=== PATIENT | female | born 1955 | race African-American/Black ===

== ENCOUNTER → 2018-12-07 | Outpatient (CLI) | payer OTHER ==
--- NOTE | 2018-12-08 02:46 | KCIC ---
3 views right knee HISTORY: Pain AP lateral oblique views The visualized osseous structures appear normal. There is a small exostosis arising from the proximal medial tibia. IMPRESSION: No acute findings. Electronically signed by: Bridger Villafana III, MD (12/08/2018 2:43 AM) [facility]
== END | disposition home or self-care (01) ==
LOC: KCIC 09:21
PROVIDERS: ATTEND Family Medicine
DX: M25.861 Other specified joint disorders, right knee (principal)
CPT/HCPCS: 73562

== ENCOUNTER 2018-12-22 22:08 | Emergency (ER) | payer OTHER ==
[~2018-12-22] VITALS: Ht 165.1 cm; Wt 63.5 kg
[2018-12-22 22:15] VITALS: BP 194/93
--- NOTE | 2018-12-22 22:32 | PHYS DOC ---
Adult General Chief Complaint Chief Complaint: Neck Pain HPI HPI Patient is a 63 year old Female who presents with woke up 2 days ago with right neck pain that goes into the right shoulder and is tight. Patient states that when she tries to look from [id number] and [id number] she feels pain and pulling in the muscle in the right neck into the shoulder. Patient states she went to [facility] urgent care today and they gave her Flexeril of which she has not taken. Patient states that she uses a heating pad the muscle loosens up and she is able to turn her head more. Patient states she is not taking any medicine because she went home and took a nap and when she woke up she was afraid that maybe it was something more serious. Patient rates her pain and discomfort a 9 out of 10. Review of Systems Review of Systems Musculoskeletal: Right neck pain and tightness into the shoulder. Denies back pain or joint pain [] All other systems were reviewed and found to be within normal limits, except as documented in this note. Physical Exam Physical Exam Constitutional: Well developed, well nourished, no acute distress, non-toxic appearance. [] HENT: Normocephalic, atraumatic, bilateral external ears normal, oropharynx moist, no oral exudates, nose normal. [] Eyes: PERRLA, EOMI, conjunctiva normal, no discharge. [] Neck: Limited range of motion, Right neck tenderness, supple, no stridor. [] Cardiovascular:Heart rate regular rhythm, no murmur [] Lungs & Thorax: Bilateral breath sounds clear to auscultation [] Skin: Warm, dry, no erythema, no rash. [] Back: No tenderness, no CVA tenderness. [] Extremities: No tenderness, no cyanosis, no clubbing, ROM intact, no edema. [] Neurologic: Alert and oriented X 3, normal motor function, normal sensory function, no focal deficits noted. [] Psychologic: Affect normal, judgement normal, mood normal. [] EKG EKG [] Radiology/Procedures Radiology/Procedures [] Course & Med Decision Making Course & Med Decision Making Tenderness to the right neck down into the right shoulder. Patient range of motion is limited in the neck. Alert and oriented. Speaks in full clear sentences. No deformity or masses felt in the neck. Patient denies chest pain, numbness or tingling, shortness of breath, fever, back pain, visual changes, headache, dizziness, syncope, abdominal pain, nausea, vomiting. No bony spinal tenderness with palpation. PERRLA. Ambulatory with a steady gait. Skin pink warm and dry. Patient can move at the shoulder joints bilaterally with full range of motion. Patient is told to take the Flexeril and use a heating pad and she can also take ibuprofen. Patient states she took Advil and I told her that this was fine. Patient to follow-up with her primary care provider. Dragon Disclaimer Dragon Disclaimer This electronic medical record was generated, in whole or in part, using a voice recognition dictation system. Departure Departure Impression: Primary Impression: Muscle strain Disposition: 01 HOME, SELF-CARE Condition: STABLE Referrals: Bette DAS MD (PCP) Patient Instructions: Torticollis, Acute Additional Instructions: Follow up with primary care provider. Take medications as prescribed. Use Advil and Heating pad. STU SANTANA APRN Dec 22, 2018 22:32
== END 2018-12-22 22:45 | disposition home or self-care (01) ==
LOC: ER 22:08
DX: S16.1XXA Strain of muscle, fascia and tendon at neck level, initial encounter (principal); X50.9XXA Other and unspecified overexertion or strenuous movements or postures, initial encounter; Y93.89 Activity, other specified; Y92.89 Other specified places as the place of occurrence of the external cause; Y99.8 Other external cause status
CPT/HCPCS: 99281

== ENCOUNTER → 2019-12-27 | Outpatient (CLI) | payer OTHER ==
[~2019-12-27] MED LIST: ACET325T9 PO; CRESTOR40 MG PO; HYDR50TA6 PO; METO-239 PO; POTA20TA4 PO
[2019-12-27 09:56] LABS: BASO # 0.1 x10^3/uL (0.0-0.2); BASO % 1 % (0-3); EOS # 0.1 x10^3/uL (0.0-0.7); EOS % 1 % (0-3); HEMATOCRIT 41.3 % (36.0-47.0); HEMOGLOBIN 13.9 g/dL (12.0-15.5); LYMPH # 3.6 x10^3/uL (1.0-4.8); LYMPH % 39 % (24-48); MEAN CORPUSCULAR HEMOGLOBIN 33 pg (25-35); MEAN CORPUSCULAR HGB CONC 34 g/dL (31-37); MEAN CORPUSCULAR VOLUME 97 fL (79-100); MONO # 0.8 x10^3/uL (0.0-1.1); MONO % 8 % (0-9); NEUT # 4.6 x10^3/uL (1.8-7.7); NEUT % 51 % (31-73); PLATELET COUNT 259 x10^3/uL (140-400); RED BLOOD COUNT 4.25 x10^6/uL (3.50-5.40); RED CELL DISTRIBUTION WIDTH 14.1 % (11.5-14.5); WHITE BLOOD COUNT 9.1 x10^3/uL (4.0-11.0)
[2019-12-27 10:01] LABS: PROTHROMBIN TIME PATIENT 14.8 SEC (11.7-14.0)
[2019-12-27 10:23] LABS: ALBUMIN 3.5 g/dL (3.4-5.0); C-REACTIVE PROTEIN 3.6 mg/L (0-3.3); CALCIUM 9.6 mg/dL (8.5-10.1); CREATININE 0.7 mg/dL (0.6-1.0); GFR 101.6
[2019-12-27 10:38] LABS: POTASSIUM 2.6 mmol/L (3.5-5.1)
--- NOTE | 2019-12-27 13:40 | EKG ---
[facility] [address] [place] [address] Test Date: 2019-12-27 Test Time: 13:20:52 Pat Name: COSME THACKER Department: Room: Gender: F Director Independent: : 1955 Requested By: CORY VIERA Order Number: [id number] Reading MD: Gordon Shah MD Measurements Intervals [place] Rate: 92 P: 36 CO: 134 QRS: 13 QRSD: 72 T: 21 QT: 364 QTc: 455 Interpretive Statements SINUS RHYTHM Electronically Signed On 12-28-2019 8:36:05 BODY WELDER by Gordon Shah MD
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
[2019-12-28 01:08] LABS: HEMOGLOBIN A1C 5.5 % (4.8-5.6)
== END ==
LOC: SURGPAT 13:21
PROVIDERS: ATTEND Orthopaedic Surgery
DX: Z01.818 Encounter for other preprocedural examination (principal); M16.11 Unilateral primary osteoarthritis, right hip
CPT/HCPCS: 36415; 71046; 80048; 82040; 82306; 83036; 85025; 85610; 85730; 86140; 87641; 93005

== ENCOUNTER → 2020-01-05 | Outpatient (CLI) | payer MEDICARE, OTHER | LOC: LAB 11:55 | PROVIDERS: ATTEND Orthopaedic Surgery | DX: Z01.812 Encounter for preprocedural laboratory examination (principal); Z20.828 Contact with and (suspected) exposure to other viral communicable diseases | CPT/HCPCS: U0003 ==

== ENCOUNTER → 2020-01-17 | Outpatient (CLI) | payer MEDICARE, OTHER ==
[2020-01-13 08:16] VITALS: BP 100/60
[~2020-01-17] MED LIST changes: +TRAM50TA PO; +WARF4TAB64 PO
--- NOTE | 2020-01-17 15:52 | RAD ---
Examination: Unilateral venous Doppler. Technique: Ultrasound evaluation of the right lower extremity was performed from the groin to the upper calf with pickering scale, spectral and color doppler evaluation. Indication: Leg swelling Comparison: None Findings: There is normal venous flow and compressibility of right common femoral vein, femoral vein, popliteal vein, and visualized proximal calf veins. Evaluation of the calf veins is limited given limited sonographic penetration and swelling. Impression: 1. No evidence for deep vein thrombosis of right lower extremity, although evaluation of the calf veins is limited. 2. Swelling of the right calf. Electronically signed by: Christian Lopez MD (01/17/2020 3:49 PM) [facility]
== END ==
LOC: US 14:58
PROVIDERS: ATTEND Physician Assistant
DX: R22.41 Localized swelling, mass and lump, right lower limb (principal); Z96.641 Presence of right artificial hip joint
CPT/HCPCS: 93971

== ENCOUNTER 2020-09-19 16:20 | Emergency (ER) | payer OTHER, MEDICARE ==
[~2020-09-19] VITALS: Ht 162.6 cm; Wt 77.2 kg
[~2020-09-19 16:20] MED LIST changes: -HYDR50TA6 PO; +HYDR50TA9 PO
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
[2020-09-19] MEDS ORDERED: CONTRAST GIVEN. MC PRN (16:45)
[2020-09-19] MEDS ORDERED: IOHEXOL 300 MG/ML 100ML VIAL. IV ONE (16:45)
[2020-09-19] MEDS ORDERED: MORPHINE SULFATE 2 MG/ML INJ. IVP ONE (16:45)
[2020-09-19 16:56] LABS: BASO % 0 % (0-3); EOS # 0.1 x10^3/uL (0.0-0.7); EOS % 1 % (0-3); HEMATOCRIT 38.9 % (36.0-47.0); HEMOGLOBIN 13.4 g/dL (12.0-15.5); LYMPH # 5.9 x10^3/uL (1.0-4.8); LYMPH % 49 % (24-48); MEAN CORPUSCULAR HEMOGLOBIN 34 pg (25-35); MEAN CORPUSCULAR HGB CONC 34 g/dL (31-37); MEAN CORPUSCULAR VOLUME 99 fL (79-100); MONO # 0.8 x10^3/uL (0.0-1.1); MONO % 7 % (0-9); NEUT # 5.1 x10^3/uL (1.8-7.7); NEUT % 43 % (31-73); PLATELET COUNT 259 x10^3/uL (140-400); RED BLOOD COUNT 3.91 x10^6/uL (3.50-5.40); RED CELL DISTRIBUTION WIDTH 14.5 % (11.5-14.5)
[2020-09-19 17:11] LABS: ALBUMIN 3.6 g/dL (3.4-5.0); ALBUMIN/GLOBULIN RATIO 0.8 (1.0-1.7); CALCIUM 9.2 mg/dL (8.5-10.1); GFR 67.3; TOTAL BILIRUBIN 0.9 mg/dL (0.2-1.0); TOTAL PROTEIN 8.2 g/dL (6.4-8.2)
[2020-09-19 17:20] LABS: POTASSIUM 2.9 mmol/L (3.5-5.1)
[2020-09-19] MEDS ORDERED: IV NORMAL SALINE 1000ML BAG 1,000 ML IV ONE (17:30)
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
[2020-09-19] MEDS ORDERED: POTASSIUM CHLORIDE 20MEQ 100 ML IV ONE (18:00)
[2020-09-19] MEDS ORDERED: POTA-163 PO (18:09)
[2020-09-19] MEDS ORDERED: POTASSIUM CHLORIDE 20 MEQ TABLET.ER. PO ONE (18:15)
--- NOTE | 2020-09-19 18:29 | EKG ---
[facility] [address] [place] [address] Test Date: 2020-09-19 Test Time: 17:49:53 Pat Name: COSME THACKER Department: Room: Gender: F Lithographed Plate Inspector: [id number] : 1955 Requested By: MARIAELENA JOHNSON Order Number: [id number] Reading MD: Measurements Intervals [place] Rate: 111 P: 28 CO: 124 QRS: 3 QRSD: 74 T: 26 QT: 334 QTc: 458 Interpretive Statements SINUS TACHYCARDIA INCOMPLETE RIGHT BUNDLE BRANCH BLOCK OTHERWISE NORMAL ECG RI6.02 No previous ECG available for comparison
[2020-09-19 18:47] VITALS: BP 141/67
== END 2020-09-19 18:47 | disposition home or self-care (01) ==
LOC: ER 16:20
DX: M54.6 Pain in thoracic spine (principal); E87.6 Hypokalemia; G89.11 Acute pain due to trauma; N63.20 Unspecified lump in the left breast, unspecified quadrant; R07.89 Other chest pain; R10.2 Pelvic and perineal pain; I10 Essential (primary) hypertension; V89.2XXA Person injured in unspecified motor-vehicle accident, traffic, initial encounter; Y93.89 Activity, other specified; Y92.488 Other paved roadways as the place of occurrence of the external cause; Y99.8 Other external cause status
CPT/HCPCS: 36415; 71260; 72125; 74177; 80053; 85025; 93005; 99285; Q9967